=== PATIENT | female | born 1965 | race Caucasian/White ===

== ENCOUNTER 2018-03-04 10:27 | Outpatient (CLI) | payer BC | END 2018-03-04 10:28 | disposition home or self-care (01) | LOC: BICMAMMO 10:27 | PROVIDERS: ATTEND Obstetrics & Gynecology | DX: Z12.31 Encounter for screening mammogram for malignant neoplasm of breast (principal) | CPT/HCPCS: 77063; 77067 ==

== ENCOUNTER 2021-03-21 13:32 | Outpatient (CLI) | payer BC | END 2021-03-21 13:33 | disposition home or self-care (01) | LOC: ULT 13:32 | PROVIDERS: ATTEND Family Medicine | DX: I42.9 Cardiomyopathy, unspecified (principal); I07.1 Rheumatic tricuspid insufficiency | CPT/HCPCS: 93306 ==

== ENCOUNTER 2021-05-03 01:39 | Emergency (ER) | payer BC ==
[2021-05-03 02:39] LABS: #Eosinphils 0.1 thou/uL (0.0-0.7); #Lymphocytes 2.1 thou/uL (1.20-3.40); #Monocytes 0.4 thou/uL (0.11-0.59); #Neutrophils 8.4 thou/uL (1.40-6.50); %Basophils 0.3 % (0.0-1.0); %Eosinophils 0.8 % (0.0-10.0); %Lymphocytes 19.1 % (21.0-51.0); %Monocytes 3.8 % (0.0-10.0); Hemoglobin 14.5 g/dL (12.0-16.0); Mean Corpuscular HGB CONC 32.5 g/dL (32.0-36.0); Mean Corpuscular Hemoglobin 30.4 pg (27.0-31.0); Mean Corpuscular Volume 93.7 fL (78.0-98.0); Mean Platelet Volume 7.6 fL (7.4-10.4); Platelet Count 239 thou/uL (130-400); RBC Distribution Width 12.3 % (11.5-14.5); Red Blood Cell (RBC) Count 4.77 mill/uL (4.20-5.40)
[2021-05-03 02:47] LABS: Bacteria/HPF None Seen HPF (None Seen); Bilirubin Negative (Negative); Blood, Urine Negative (Negative); Clarity Turbid (Clear); Glucose, Urine (Dipstick) Normal (Negative); Ketone, Urine Negative (Negative); Leukocyte 25 Leu/uL (Negative); Nitrite Negative (Negative); Protein, Urine (Dipstick) 30 mg/dL (Neg-Trace); RBC/HPF 0-3 HPF (0-3); Specific Gravity, Urine 1.016 (1.002-1.036); Squamous Epithelial 0-3 HPF (0-3); WBC/HPF 0-3 HPF (0-3); pH, Urine 5.5 (5.0-9.0)
[2021-05-03 02:58] LABS: ALT (SGPT) 8 U/L (8-55); AST (SGOT) 15 U/L (5-34); Albumin 3.5 g/dL (3.5-5.0); Alkaline Phosphatase 61 U/L (40-110); Anion Gap 12 mmol/L (10-20); BUN (Urea Nitrogen) 16 mg/dL (9.8-20.1); Bilirubin, Total 0.3 mg/dL (0.2-1.2); Calc. Creatinine Clearance 0 mL/min (70-130); Calcium 8.7 mg/dL (7.8-10.44); Carbon Dioxide 28 mmol/L (22-29); Chloride 103 mmol/L (98-107); Globulin 2.7 g/dL (2.4-3.5); Glucose 167 mg/dL (70-105); Lipase 25 U/L (8-78); Potassium 4.8 mmol/L (3.5-5.1); Protein, Total 6.2 g/dL (6.0-8.3); Sodium 138 mmol/L (136-145)
[2021-05-03] MEDS ORDERED: Iopamidol-370 76% 500 ML 1 ML ONE (10:11)
== END 2021-05-03 04:45 | disposition home or self-care (01) ==
LOC: ERS 01:39
DX: R11.2 Nausea with vomiting, unspecified (principal); R19.7 Diarrhea, unspecified; G47.30 Sleep apnea, unspecified; I42.9 Cardiomyopathy, unspecified; I11.0 Hypertensive heart disease with heart failure; I50.9 Heart failure, unspecified; E78.5 Hyperlipidemia, unspecified; E78.00 Pure hypercholesterolemia, unspecified; E66.9 Obesity, unspecified
CPT/HCPCS: 36415; 51701; 74177; 80053; 81003; 81015; 83605; 83690; 84484; 85025; 87324; 87449; 93005; Q9967

== ENCOUNTER 2022-11-10 12:19 | Inpatient (IN) | payer BC ==
[~2022-11-10 12:19] MED LIST: Iopamidol-370 76% 500 ML 1 ML ONE
[2022-11-10 13:04] LABS: #Lymphocytes 1.1 thou/uL (1.20-3.40); #Monocytes 0.5 thou/uL (0.11-0.59); #Neutrophils 11.3 thou/uL (1.40-6.50); %Eosinophils 0.1 % (0.0-10.0); %Lymphocytes 8.8 % (21.0-51.0); %Monocytes 3.7 % (0.0-10.0); %Neutrophils 87.4 % (42.0-75.0); Hemoglobin 14.2 g/dL (12.0-16.0); Mean Corpuscular HGB CONC 31.5 g/dL (32.0-36.0); Mean Corpuscular Hemoglobin 28.7 pg (27.0-31.0); Mean Corpuscular Volume 91.3 fl (78.0-98.0); Platelet Count 261 10x3/uL (130-400); RBC Distribution Width 12.2 % (11.5-14.5); Red Blood Cell (RBC) Count 4.95 mill/uL (4.20-5.40); White Blood Cell (WBC) Count 12.9 10x3/uL (4.8-10.8)
[2022-11-10 13:26] LABS: ALT (SGPT) 14 U/L (8-55); AST (SGOT) 16 U/L (5-34); Albumin 4.2 g/dL (3.5-5.0); Alkaline Phosphatase 82 U/L (40-110); Anion Gap 17 mmol/L (10-20); BUN (Urea Nitrogen) 15 mg/dL (9.8-20.1); Bilirubin, Total 0.8 mg/dL (0.2-1.2); Calc. Creatinine Clearance 0 mL/min (70-130); Calcium 9.8 mg/dL (7.8-10.44); Carbon Dioxide 25 mmol/L (22-29); Chloride 100 mmol/L (98-107); Estimated GFR 85; Globulin 3.9 g/dL (2.4-3.5); Glucose 173 mg/dL (70-105); Lipase 10 U/L (8-78); Potassium 3.7 mmol/L (3.5-5.1); Protein, Total 8.1 g/dL (6.0-8.3); Sodium 138 mmol/L (136-145)
[2022-11-10] MEDS ORDERED: Ondansetron PF 4 MG/2 ML Vial ONE (14:53)
[2022-11-10] MEDS ORDERED: Metoclopramide HCl 10 MG/2 ML VIAL ONE (15:35)
[2022-11-10 16:54] LABS: Bilirubin Negative (Negative); Blood, Urine Trace (Negative); Clarity Clear (Clear); Glucose, Urine (Dipstick) Normal (Negative); Ketone, Urine 40 mg/dL (Negative); Leukocyte 25 Leu/uL (Negative); Nitrite Negative (Negative); Protein, Urine (Dipstick) 20 mg/dL (Neg-Trace); Squamous Epithelial 21-50 HPF (0-3)
[2022-11-10 16:57] LABS: Bacteria/HPF 1+ HPF (None Seen); Specific Gravity, Urine Greater than 1.060 (1.002-1.036)
[2022-11-10 19:15] LABS: SARS-CoV-2 NAA Rapid Test Not Detected (NotDetected)
[2022-11-10] MEDS ORDERED: Senokot S 8.6-50 MG TAB PO PRN (21:29)
[2022-11-11 02:42] VITALS: BMI 35.7
[2022-11-11 05:47] LABS: Anion Gap 12 mmol/L (10-20); BUN (Urea Nitrogen) 12 mg/dL (9.8-20.1); Calc. Creatinine Clearance 137 mL/min (70-130); Calcium 8.8 mg/dL (7.8-10.44); Carbon Dioxide 28 mmol/L (22-29); Cardiac Risk 3.7 (Less than 4.5); Chloride 104 mmol/L (98-107); Cholesterol 175 mg/dl (< 200 Desired); Estimated GFR 100; Glucose 121 mg/dL (70-105); HDL Cholesterol 47 mg/dL (>60 Neg Risk); LDL Cholesterol, Calculated 115 mg/dL; Potassium 3.3 mmol/L (3.5-5.1); Sodium 141 mmol/L (136-145); Triglycerides 66 mg/dL (Less than 150)
[2022-11-11] MEDS: Ondansetron ODT 4 MG TAB PO PRN ×2 (08:33→15:00)
[2022-11-11] MEDS ORDERED: Lisinopril/Hydrochlorothiazide 20 mg/12.5 mg Tablet PO SCH (09:00)
[2022-11-11] MEDS: Carvedilol 6.25 MG TAB PO SCH ×2 (10:26→17:49)
[2022-11-11] MEDS: Famotidine 20 MG TAB PO SCH ×2 (10:26→21:50)
[2022-11-11] MEDS: Aspirin 81 mg Enteric Coated Tablet PO SCH (10:26)
[2022-11-11] MEDS: NS 0.9% w/ 20 MEQ KCL 1,000 ML/1,000 ML BAG IV SCH (17:30)
[2022-11-11] MEDS: Acetaminophen 325 MG TAB PO PRN (17:31)
[2022-11-11] MEDS: Metoclopramide HCl 10 MG/2 ML VIAL IVP PRN (17:39)
[2022-11-11] MEDS: Atorvastatin Calcium 40 MG TAB PO SCH (21:50)
[2022-11-12] MEDS ORDERED: Electrolyte Replacement Protocol 1 EACH FS SCH (08:00)
[2022-11-12] MEDS ORDERED: Potassium Chloride 20 MEQ TAB PO SCH (08:00)
[2022-11-12] MEDS ORDERED: Lisinopril 10 MG TAB PO SCH (09:00)
[2022-11-12] MEDS: Ondansetron PF 4 MG/2 ML Vial IVP PRN (09:50)
[2022-11-12] MEDS: NS 0.9% w/ 20 MEQ KCL 1,000 ML/1,000 ML BAG IV SCH (09:50)
[2022-11-12] MEDS: Famotidine 20 MG TAB PO SCH ×2 (09:51→20:54)
[2022-11-12] MEDS: Aspirin 81 mg Enteric Coated Tablet PO SCH (09:51)
[2022-11-12] MEDS: Carvedilol 6.25 MG TAB PO SCH ×2 (09:51→17:23)
[2022-11-12] MEDS ORDERED: Lidocaine 1% w/Epinephrine 1:100K 20 ML VIAL ONE (10:17)
[2022-11-12] MEDS: Metoclopramide HCl 10 MG/2 ML VIAL IVP PRN (15:35)
[2022-11-12] MEDS: Atorvastatin Calcium 40 MG TAB PO SCH (20:54)
[2022-11-13 05:33] LABS: #Eosinphils 0.1 thou/uL (0.0-0.7); #Lymphocytes 1.9 thou/uL (1.20-3.40); #Monocytes 0.8 thou/uL (0.11-0.59); %Basophils 0.4 % (0.0-1.0); %Lymphocytes 21.2 % (21.0-51.0); %Monocytes 8.9 % (0.0-10.0); %Neutrophils 68.6 % (42.0-75.0); Hemoglobin 13.1 g/dL (12.0-16.0); Mean Corpuscular HGB CONC 32.4 g/dL (32.0-36.0); Mean Corpuscular Hemoglobin 30.1 pg (27.0-31.0); Mean Corpuscular Volume 92.8 fl (78.0-98.0); Platelet Count 199 10x3/uL (130-400); Red Blood Cell (RBC) Count 4.37 mill/uL (4.20-5.40); White Blood Cell (WBC) Count 8.8 10x3/uL (4.8-10.8)
[2022-11-13 05:57] LABS: Anion Gap 12 mmol/L (10-20); BUN (Urea Nitrogen) 9 mg/dL (9.8-20.1); Calc. Creatinine Clearance 135 mL/min (70-130); Carbon Dioxide 32 mmol/L (22-29); Chloride 100 mmol/L (98-107); Estimated GFR 100; Glucose 102 mg/dL (70-105); Potassium 3.7 mmol/L (3.5-5.1); Sodium 140 mmol/L (136-145)
[2022-11-13] MEDS ORDERED: PROPOFOL 20 ML ONE (07:17)
[2022-11-13] MEDS ORDERED: PROPOFOL 200 MG/20 ML VIAL ONE (07:30)
[2022-11-13] MEDS ORDERED: Lisinopril 10 MG TAB PO SCH (07:45)
[2022-11-13] MEDS ORDERED: Lisinopril 20 MG TAB PO SCH (09:00)
[2022-11-13] MEDS: Aspirin 81 mg Enteric Coated Tablet PO SCH (09:27)
[2022-11-13] MEDS: Carvedilol 6.25 MG TAB PO SCH ×2 (09:27→16:41)
[2022-11-13] MEDS: Famotidine 20 MG TAB PO SCH ×2 (09:27→21:30)
[2022-11-13] MEDS: Acetaminophen 325 MG TAB PO PRN (09:29)
[2022-11-13] MEDS: Ondansetron PF 4 MG/2 ML Vial IVP PRN (09:29)
[2022-11-13] MEDS ORDERED: Moisturizing Cream (Eucerin) 113 GM JAR TOP PRN (11:35)
[2022-11-13] MEDS ORDERED: Sodium Chloride 0.65% Nasal 44 ML BOT EA NARE PRN (11:35)
[2022-11-13] MEDS ORDERED: Acetaminophen 500 MG TAB PO PRN (11:35)
[2022-11-13] MEDS ORDERED: Artificial Tear Sol 15 ML BOT EA EYE PRN (11:35)
[2022-11-13] MEDS ORDERED: NIFEdipine XL 30 MG TAB PO SCH (12:00)
[2022-11-13] MEDS: Metoclopramide HCl 10 MG/2 ML VIAL IVP PRN (13:48)
[2022-11-13] MEDS: Acetaminophen 500 MG TAB PO PRN (13:49)
[2022-11-13] MEDS ORDERED: Prochlorperazine Maleate 5 MG TAB PO PRN (15:44)
[2022-11-13] MEDS: Scopolamine 1.5 mg/72 hour Patch TD SCH (16:42)
[2022-11-13] MEDS: Promethazine 25 MG TAB PO SCH (16:42)
[2022-11-13] MEDS: Atorvastatin Calcium 40 MG TAB PO SCH (21:30)
[2022-11-14] MEDS: Ondansetron ODT 4 MG TAB PO SCH ×3 (01:12→22:16)
[2022-11-14] MEDS: Promethazine 25 MG TAB PO SCH ×2 (05:45→17:44)
[2022-11-14 06:20] LABS: Magnesium 1.9 mg/dL (1.6-2.6)
[2022-11-14] MEDS ORDERED: Magnesium 2 GM/50 ML(in water) 2 GM in Premix Bag 1 BAG IVPB SCH (08:00)
[2022-11-14] MEDS ORDERED: FLU VACC QS2022-23(6MOS UP)/PF 60 MCG/0.5 ML SYRINGE IM ONE (09:00)
[2022-11-14] MEDS ORDERED: NIFEdipine XL 30 MG TAB PO SCH (09:00)
[2022-11-14] MEDS: Carvedilol 6.25 MG TAB PO SCH ×2 (09:12→17:40)
[2022-11-14] MEDS: Famotidine 20 MG TAB PO SCH ×2 (09:15→22:18)
[2022-11-14] MEDS: Aspirin 81 mg Enteric Coated Tablet PO SCH (09:15)
[2022-11-14] MEDS: Lisinopril 20 MG TAB PO SCH ×2 (09:16→22:17)
[2022-11-14] MEDS: NIFEdipine XL 60 MG TAB PO SCH (09:16)
[2022-11-14] MEDS: Acetaminophen 325 MG TAB PO PRN (09:16)
[2022-11-14] MEDS: Loratadine 10 MG TAB PO SCH (09:16)
[2022-11-14] MEDS: Acetaminophen 500 MG TAB PO PRN (17:48)
[2022-11-14] MEDS: Atorvastatin Calcium 40 MG TAB PO SCH (22:17)
[2022-11-15] MEDS: Acetaminophen 500 MG TAB PO PRN ×2 (02:17→10:44)
[2022-11-15] MEDS: Promethazine 25 MG TAB PO SCH ×2 (06:11→17:57)
[2022-11-15] MEDS: Aspirin 81 mg Enteric Coated Tablet PO SCH (10:43)
[2022-11-15] MEDS: NIFEdipine XL 60 MG TAB PO SCH (10:43)
[2022-11-15] MEDS: Lisinopril 20 MG TAB PO SCH ×2 (10:43→21:49)
[2022-11-15] MEDS: Famotidine 20 MG TAB PO SCH ×2 (10:43→21:49)
[2022-11-15] MEDS: Loratadine 10 MG TAB PO SCH (10:43)
[2022-11-15] MEDS: Carvedilol 6.25 MG TAB PO SCH ×2 (10:44→17:57)
[2022-11-15] MEDS: Ondansetron ODT 4 MG TAB PO SCH ×2 (11:49→21:48)
[2022-11-15] MEDS ORDERED: Meclizine HCl 12.5 MG TAB PO PRN (17:23)
[2022-11-15] MEDS: Dextrose 5 %-0.45 % NaCl 1,000 ML IV SCH (18:00)
[2022-11-15] MEDS: Atorvastatin Calcium 40 MG TAB PO SCH (21:48)
[2022-11-16] MEDS: Promethazine 25 MG TAB PO SCH ×2 (04:53→18:00)
[2022-11-16 05:44] LABS: #Eosinphils 0.2 thou/uL (0.0-0.7); #Lymphocytes 1.5 thou/uL (1.20-3.40); #Monocytes 0.8 thou/uL (0.11-0.59); #Neutrophils 7.4 thou/uL (1.40-6.50); %Basophils 0.2 % (0.0-1.0); %Lymphocytes 14.9 % (21.0-51.0); %Monocytes 7.7 % (0.0-10.0); %Neutrophils 75.2 % (42.0-75.0); Hemoglobin 14.4 g/dL (12.0-16.0); Mean Corpuscular HGB CONC 32.8 g/dL (32.0-36.0); Mean Corpuscular Hemoglobin 30.6 pg (27.0-31.0); Mean Corpuscular Volume 93.3 fl (78.0-98.0); Mean Platelet Volume 8.4 fL (7.4-10.4); Platelet Count 227 10x3/uL (130-400); RBC Distribution Width 12.5 % (11.5-14.5); Red Blood Cell (RBC) Count 4.72 mill/uL (4.20-5.40); White Blood Cell (WBC) Count 9.9 10x3/uL (4.8-10.8)
[2022-11-16 06:07] LABS: Anion Gap 13 mmol/L (10-20); BUN (Urea Nitrogen) 11 mg/dL (9.8-20.1); Calc. Creatinine Clearance 129 mL/min (70-130); Calcium 8.9 mg/dL (7.8-10.44); Carbon Dioxide 28 mmol/L (22-29); Chloride 99 mmol/L (98-107); Estimated GFR 96; Glucose 126 mg/dL (70-105); Magnesium 1.9 mg/dL (1.6-2.6); Potassium 3.6 mmol/L (3.5-5.1); Sodium 136 mmol/L (136-145)
[2022-11-16] MEDS ORDERED: Magnesium 2 GM/50 ML(in water) 2 GM in Premix Bag 1 BAG IVPB SCH (09:00)
[2022-11-16] MEDS: Aspirin 81 mg Enteric Coated Tablet PO SCH (09:25)
[2022-11-16] MEDS: Famotidine 20 MG TAB PO SCH ×2 (09:26→21:09)
[2022-11-16] MEDS: NIFEdipine XL 60 MG TAB PO SCH (09:27)
[2022-11-16] MEDS: Loratadine 10 MG TAB PO SCH (09:28)
[2022-11-16] MEDS: Meclizine HCl 12.5 MG TAB PO SCH (09:28)
[2022-11-16] MEDS: Lisinopril 20 MG TAB PO SCH ×2 (09:28→21:09)
[2022-11-16] MEDS: Carvedilol 6.25 MG TAB PO SCH ×2 (09:28→16:17)
[2022-11-16] MEDS: Ondansetron ODT 4 MG TAB PO SCH (12:41)
[2022-11-16] MEDS ORDERED: Ondansetron ODT 4 MG TAB PO PRN (15:50)
[2022-11-16] MEDS ORDERED: Potassium Chloride 40 MEQ in Premix Bag 1 BAG IVPB SCH (16:00)
[2022-11-16] MEDS ORDERED: Magnesium Oxide 250 MG TAB PO SCH (16:00)
[2022-11-16] MEDS: Dextrose 5 %-0.45 % NaCl 1,000 ML IV SCH (16:13)
[2022-11-16] MEDS: Scopolamine 1.5 mg/72 hour Patch TD SCH (16:13)
[2022-11-16] MEDS: Potassium Chloride 20 MEQ in Premix Bag 1 BAG IVPB SCH ×2 (16:54→21:11)
[2022-11-16] MEDS: Atorvastatin Calcium 40 MG TAB PO SCH (21:09)
[2022-11-17 05:24] LABS: Magnesium 2.1 mg/dL (1.6-2.6)
[2022-11-17] MEDS: Promethazine 25 MG TAB PO SCH (05:29)
[2022-11-17 05:36] LABS: Anion Gap 14 mmol/L (10-20); BUN (Urea Nitrogen) 11 mg/dL (9.8-20.1); Calc. Creatinine Clearance 137 mL/min (70-130); Calcium 9.2 mg/dL (7.8-10.44); Carbon Dioxide 28 mmol/L (22-29); Chloride 101 mmol/L (98-107); Estimated GFR 100; Glucose 89 mg/dL (70-105); Phosphorus 3.5 mg/dL (2.3-4.7); Sodium 139 mmol/L (136-145)
[2022-11-17] MEDS ORDERED: NIFEdipine XL 60 MG TAB PO SCH (07:25)
[2022-11-17] MEDS ORDERED: Milk Of Magnesia 30 ML UDCUP PO SCH (08:45)
[2022-11-17] MEDS ORDERED: Senokot 8.6 MG TAB PO SCH (08:45)
[2022-11-17] MEDS: Lisinopril 20 MG TAB PO SCH ×2 (09:32→20:28)
[2022-11-17] MEDS: Famotidine 20 MG TAB PO SCH ×2 (09:33→20:28)
[2022-11-17] MEDS: Carvedilol 6.25 MG TAB PO SCH ×2 (09:33→17:36)
[2022-11-17] MEDS: Meclizine HCl 12.5 MG TAB PO SCH (09:34)
[2022-11-17] MEDS: Acetaminophen 500 MG TAB PO PRN (09:34)
[2022-11-17] MEDS: NIFEdipine XL 90 MG TAB PO SCH (09:34)
[2022-11-17] MEDS: Loratadine 10 MG TAB PO SCH (09:34)
[2022-11-17] MEDS: Aspirin 81 mg Enteric Coated Tablet PO SCH (09:34)
[2022-11-17] MEDS: Metoclopramide HCl 10 MG TAB PO SCH ×2 (17:36→20:28)
[2022-11-17] MEDS: Atorvastatin Calcium 40 MG TAB PO SCH (20:28)
[2022-11-18 06:12] LABS: Anion Gap 13 mmol/L (10-20); BUN (Urea Nitrogen) 12 mg/dL (9.8-20.1); Calc. Creatinine Clearance 128 mL/min (70-130); Calcium 9.1 mg/dL (7.8-10.44); Carbon Dioxide 30 mmol/L (22-29); Chloride 99 mmol/L (98-107); Estimated GFR 95; Glucose 92 mg/dL (70-105); Potassium 3.8 mmol/L (3.5-5.1); Sodium 138 mmol/L (136-145)
[2022-11-18] MEDS: Carvedilol 6.25 MG TAB PO SCH ×2 (08:29→16:35)
[2022-11-18] MEDS: Famotidine 20 MG TAB PO SCH ×2 (08:30→21:05)
[2022-11-18] MEDS: NIFEdipine XL 90 MG TAB PO SCH (08:30)
[2022-11-18] MEDS: Aspirin 81 mg Enteric Coated Tablet PO SCH (08:30)
[2022-11-18] MEDS: Metoclopramide HCl 10 MG TAB PO SCH ×4 (08:30→21:05)
[2022-11-18] MEDS: Lisinopril 20 MG TAB PO SCH ×2 (08:30→21:05)
[2022-11-18] MEDS: Meclizine HCl 12.5 MG TAB PO SCH (08:30)
[2022-11-18] MEDS: Loratadine 10 MG TAB PO SCH (08:30)
[2022-11-18] MEDS: Ondansetron ODT 4 MG TAB PO PRN ×2 (13:45→20:09)
[2022-11-18] MEDS: Atorvastatin Calcium 40 MG TAB PO SCH (21:05)
[2022-11-19 06:15] LABS: Anion Gap 15 mmol/L (10-20); BUN (Urea Nitrogen) 14 mg/dL (9.8-20.1); Calc. Creatinine Clearance 128 mL/min (70-130); Calcium 9.2 mg/dL (7.8-10.44); Carbon Dioxide 28 mmol/L (22-29); Chloride 99 mmol/L (98-107); Estimated GFR 95; Glucose 89 mg/dL (70-105); Potassium 3.7 mmol/L (3.5-5.1); Sodium 138 mmol/L (136-145)
[2022-11-19] MEDS: Famotidine 20 MG TAB PO SCH (08:22)
[2022-11-19] MEDS: Aspirin 81 mg Enteric Coated Tablet PO SCH (08:22)
[2022-11-19] MEDS: Loratadine 10 MG TAB PO SCH (08:22)
[2022-11-19] MEDS: Carvedilol 6.25 MG TAB PO SCH ×2 (08:22→16:13)
[2022-11-19] MEDS: Lisinopril 20 MG TAB PO SCH (08:22)
[2022-11-19] MEDS: NIFEdipine XL 90 MG TAB PO SCH (08:22)
[2022-11-19] MEDS: Meclizine HCl 12.5 MG TAB PO SCH (08:23)
[2022-11-19] MEDS: Metoclopramide HCl 10 MG TAB PO SCH ×3 (08:23→16:14)
[2022-11-19] MEDS: Acetaminophen 500 MG TAB PO PRN (09:19)
[2022-11-19 16:03] VITALS: BP 153/81; TEMP 97.9
[2022-11-19] MEDS: Scopolamine 1.5 mg/72 hour Patch TD SCH (16:13)
== END 2022-11-19 17:45 | DRG 41 ==
LOC: ERS 12:19 → NEURO 21:29
PROVIDERS: ADMIT Student in an Organized Health Care Education/Training Program; ATTEND Family Medicine
PROC: 0JH602Z Insertion of Monitoring Device into Chest Subcutaneous Tissue and Fascia, Open Approach (ICD-10-PCS; 2022-11-12)
PROC: B24BZZ4 Ultrasonography of Heart with Aorta, Transesophageal (ICD-10-PCS; principal; 2022-11-13)
DX: I63.532 Cerebral infarction due to unspecified occlusion or stenosis of left posterior cerebral artery (principal); I47.20 Ventricular tachycardia, unspecified; Z51.5 Encounter for palliative care; E78.5 Hyperlipidemia, unspecified; I11.0 Hypertensive heart disease with heart failure; I50.9 Heart failure, unspecified; E87.6 Hypokalemia; F41.9 Anxiety disorder, unspecified; R11.2 Nausea with vomiting, unspecified; G47.30 Sleep apnea, unspecified; E78.00 Pure hypercholesterolemia, unspecified; F32.A Depression, unspecified; R29.700 NIHSS score 0; R26.0 Ataxic gait; E66.9 Obesity, unspecified; Z68.35 Body mass index [BMI] 35.0-35.9, adult; Z79.899 Other long term (current) drug therapy; Z98.890 Other specified postprocedural states; Z82.49 Family history of ischemic heart disease and other diseases of the circulatory system; I08.1 Rheumatic disorders of both mitral and tricuspid valves; I63.531 Cerebral infarction due to unspecified occlusion or stenosis of right posterior cerebral artery; R47.1 Dysarthria and anarthria
CPT/HCPCS: 33285; 36415; 70450; 70551; 71045; 74177; 80048; 80053; 80061; 81003; 81015; 83036; 83690; 83735; 84100; 84443; 84484; 85025; 87811; 93005; 93306; 93312; 93880; 96361; 96365; 96375; C1764; J1650; J2405; J2704; J2765; J3475; J3480; J7042; Q0162; Q0164; Q0169; Q9967; U0002

== ENCOUNTER 2022-12-19 03:08 | Emergency (ER) | payer BC ==
[2022-12-19] MEDS ORDERED: Mag-Al 1200 mg/1200 mg/30 ML UDCUP ONE (03:22)
[2022-12-19] MEDS ORDERED: Lidocaine Viscous Sol 2% 15 ml UD Cup ONE (03:22)
== END 2022-12-19 04:27 | disposition home or self-care (01) ==
LOC: ERS 03:08
DX: K21.9 Gastro-esophageal reflux disease without esophagitis (principal); E78.00 Pure hypercholesterolemia, unspecified; E66.9 Obesity, unspecified; I11.0 Hypertensive heart disease with heart failure; I50.9 Heart failure, unspecified; Z79.899 Other long term (current) drug therapy
CPT/HCPCS: 93005

== ENCOUNTER 2023-05-13 08:12 | Emergency (ER) | payer BC ==
[2023-05-13] MEDS ORDERED: Ondansetron PF 4 MG/2 ML Vial ONE (08:43)
[2023-05-13 09:12] LABS: #Eosinphils 0.3 thou/uL (0.0-0.7); #Monocytes 0.7 thou/uL (0.11-0.59); #Neutrophils 4.6 thou/uL (1.40-6.50); %Basophils 0.6 % (0.0-1.0); %Eosinophils 4.8 % (0.0-10.0); %Lymphocytes 17.9 % (21.0-51.0); %Monocytes 9.7 % (0.0-10.0); %Neutrophils 66.7 % (42.0-75.0); Hematocrit 37.3 % (36.0-47.0); Hemoglobin 11.6 g/dL (12.0-16.0); Mean Corpuscular HGB CONC 31.1 g/dL (32.0-36.0); Mean Corpuscular Hemoglobin 29.4 pg (27.0-31.0); Mean Corpuscular Volume 94.4 fl (78.0-98.0); Mean Platelet Volume 10.1 fL (7.4-10.4); Platelet Count 177 10x3/uL (130-400); RBC Distribution Width 13.2 % (11.5-14.5); Red Blood Cell (RBC) Count 3.95 mill/uL (4.20-5.40); White Blood Cell (WBC) Count 6.9 10x3/uL (4.8-10.8)
[2023-05-13 09:32] LABS: ALT (SGPT) 13 U/L (8-55); AST (SGOT) 17 U/L (5-34); Albumin 3.3 g/dL (3.5-5.0); Alkaline Phosphatase 73 U/L (40-110); Anion Gap 9 mmol/L (10-20); BUN (Urea Nitrogen) 19 mg/dL (9.8-20.1); Bilirubin, Total 0.4 mg/dL (0.2-1.2); Calc. Creatinine Clearance 0 mL/min (70-130); Calcium 8.1 mg/dL (7.8-10.44); Carbon Dioxide 23 mmol/L (22-29); Chloride 109 mmol/L (98-107); Estimated GFR 81; Globulin 2.7 g/dL (2.4-3.5); Glucose 201 mg/dL (70-105); Sodium 137 mmol/L (136-145)
[2023-05-13 09:34] LABS: Bacteria/HPF Rare-Few HPF (None Seen); Bilirubin Negative (Negative); Blood, Urine Negative (Negative); CAUTI Indications for Culture Alt mental st,lethar; Clarity Clear (Clear); Glucose, Urine (Dipstick) Normal (Negative); Ketone, Urine Negative (Negative); Leukocyte 25 Leu/uL (Negative); Nitrite Negative (Negative); Protein, Urine (Dipstick) 20 mg/dL (Neg-Trace); RBC/HPF 0-3 HPF (0-3); Specific Gravity, Urine 1.027 (1.002-1.036); Urobilinogen Normal mg/dL (Less than 2); WBC/HPF 0-3 HPF (0-3); pH, Urine 5.5 (5.0-9.0)
[2023-05-13 09:36] LABS: Urine Culture Reflex No No
== END 2023-05-13 10:20 | disposition home or self-care (01) ==
LOC: ERS 08:12
DX: R42 Dizziness and giddiness (principal); E78.00 Pure hypercholesterolemia, unspecified; E66.9 Obesity, unspecified; I11.0 Hypertensive heart disease with heart failure; I50.9 Heart failure, unspecified; Z79.899 Other long term (current) drug therapy
CPT/HCPCS: 36415; 70450; 71045; 80053; 81001; 84484; 85025; 93005; 96361; 96374; J2405

== ENCOUNTER 2023-10-27 16:00 | Outpatient (CLI) | payer BC | END 2023-10-27 16:01 | disposition home or self-care (01) | LOC: SLEEPLAB 16:00 | PROVIDERS: ATTEND Family Medicine | DX: G47.33 Obstructive sleep apnea (adult) (pediatric) (principal); E66.9 Obesity, unspecified; R06.83 Snoring; R53.83 Other fatigue | CPT/HCPCS: 95800 ==

== ENCOUNTER 2025-09-29 18:49 | Inpatient (IN) | payer BC ==
[2025-09-29 20:18] LABS: #Basophils Less than 0.03 10x3/uL (0.0-0.2); #Eosinophils Less than 0.03 10x3/uL (0.0-0.7); #Monocytes 0.48 10x3/uL (0.11-0.59); #Neutrophils 5.25 10x3/uL (1.40-6.50); %Basophils 0.3 % (0.0-1.0); %Eosinophils 0.3 % (0.0-10.0); %Lymphocytes 5.2 % (21.0-51.0); %Monocytes 7.9 % (0.0-10.0); %Neutrophils 86.1 % (42.0-75.0); Hematocrit 36.1 % (36.0-47.0); Hemoglobin 11.4 g/dL (12.0-16.0); Mean Corpuscular Hemoglobin 28.4 pg (27.0-31.0); Mean Corpuscular Volume 90.0 fL (78.0-98.0); Platelet Count 191 10x3/uL (130-400); Red Blood Cell (RBC) Count 4.01 mill/uL (4.20-5.40); White Blood Cell (WBC) Count 6.10 10x3/uL (4.8-10.8)
[2025-09-29 20:32] LABS: ALT (SGPT) 14 U/L (Less than 34); AST (SGOT) 29 U/L (11-34); Albumin 3.2 g/dL (3.1-4.5); Alkaline Phosphatase 75 U/L (40-110); Anion Gap 16 mmol/L (10-20); BUN (Urea Nitrogen) 15 mg/dL (9.8-20.1); Bilirubin, Total 0.5 mg/dL (0.3-1.2); CK (CPK) 69 U/L (29-168); Calc. Creatinine Clearance 0 mL/min (70-130); Calcium 8.2 mg/dL (7.8-10.44); Carbon Dioxide 24 mmol/L (23-31); Chloride 103 mmol/L (98-107); Globulin 3.5 g/dL (2.4-3.5); Glucose 164 mg/dL (80-115); Lipase 19 U/L (8-78); Potassium 3.8 mmol/L (3.5-5.1); Sodium 139 mmol/L (136-145)
[2025-09-29] MEDS ORDERED: Oseltamivir 75 MG CAP ONE (21:48)
[2025-09-29] MEDS ORDERED: Furosemide 40 MG (4 mL) VIAL ONE (21:48)
[2025-09-29 21:49] LABS: Bacteria/HPF None Seen HPF (None Seen); CAUTI Indications for Culture Alt mental st,lethar; Glucose, Urine (Dipstick) Normal (Negative); Leukocyte 500 Leu/uL (Negative); Protein, Urine (Dipstick) 10 mg/dL (Neg-Trace); RBC/HPF None Seen HPF (0-3); Specific Gravity, Urine 1.023 (1.002-1.036); WBC/HPF 0-3 HPF (0-3)
[2025-09-29 21:53] LABS: Urine Culture Reflex No No
[2025-09-29] MEDS ORDERED: Acetaminophen 325 MG TAB PO PRN (23:00)
[2025-09-29] MEDS ORDERED: Ondansetron PF 4 MG/2 ML Vial IVP PRN (23:00)
[2025-09-30 01:19] VITALS: BMI 41.8
[2025-09-30 01:48] LABS: Actual Bicarbonate (HCO3v) 26.9 mEq/L (22-28); Base Excess 0.5 mEq/L (-2.0 to +3.0); Calcium, Ionized (venous) 1.00 mmol/L (1.16-1.32); Chloride (VBG) 102 mmol/L (98-106); Hematocrit-VBG 36 % (36.0-47.0); Hemoglobin (Hb) 12.3 g/dL (11.7-16.0); Potassium (VBG) 3.54 mmol/L (3.70-5.30); Sodium 139 mmol/L (133-146)
[2025-09-30 04:13] LABS: #Basophils Less than 0.03 10x3/uL (0.0-0.2); #Eosinophils Less than 0.03 10x3/uL (0.0-0.7); #Monocytes 0.66 10x3/uL (0.11-0.59); #Neutrophils 3.71 10x3/uL (1.40-6.50); %Basophils 0.4 % (0.0-1.0); %Eosinophils 0.0 % (0.0-10.0); %Lymphocytes 13.0 % (21.0-51.0); %Monocytes 13.0 % (0.0-10.0); %Neutrophils 73.4 % (42.0-75.0); Hematocrit 36.5 % (36.0-47.0); Hemoglobin 11.2 g/dL (12.0-16.0); Mean Corpuscular Hemoglobin 28.1 pg (27.0-31.0); Mean Corpuscular Volume 91.7 fL (78.0-98.0); Platelet Count 183 10x3/uL (130-400); Red Blood Cell (RBC) Count 3.98 mill/uL (4.20-5.40); White Blood Cell (WBC) Count 5.06 10x3/uL (4.8-10.8)
[2025-09-30 04:27] LABS: Anion Gap 16 mmol/L (10-20); BUN (Urea Nitrogen) 18 mg/dL (9.8-20.1); Calc. Creatinine Clearance 107 mL/min (70-130); Calcium 7.9 mg/dL (7.8-10.44); Carbon Dioxide 27 mmol/L (23-31); Chloride 104 mmol/L (98-107); Glucose 116 mg/dL (80-115); Potassium 3.6 mmol/L (3.5-5.1); Sodium 143 mmol/L (136-145)
[2025-09-30] MEDS: Furosemide 40 MG (4 mL) VIAL SLOW IVP SCH (06:16)
[2025-09-30] MEDS: Oseltamivir 75 MG CAP PO SCH (09:55)
[2025-09-30] MEDS: Guaifenesin DM 100-10/5 ML UDCUP PO PRN (21:08)
[2025-09-30] MEDS: Enoxaparin 40 MG (0.4 mL) SYRINGE SC SCH (21:08)
[2025-10-01 04:24] LABS: #Basophils Less than 0.03 10x3/uL (0.0-0.2); #Eosinophils Less than 0.03 10x3/uL (0.0-0.7); #Monocytes 0.76 10x3/uL (0.11-0.59); #Neutrophils 4.82 10x3/uL (1.40-6.50); %Basophils 0.2 % (0.0-1.0); %Eosinophils 0.0 % (0.0-10.0); %Lymphocytes 11.9 % (21.0-51.0); %Monocytes 11.9 % (0.0-10.0); %Neutrophils 75.8 % (42.0-75.0); Hematocrit 38.9 % (36.0-47.0); Hemoglobin 11.6 g/dL (12.0-16.0); Mean Corpuscular Hemoglobin 27.5 pg (27.0-31.0); Mean Corpuscular Volume 92.2 fL (78.0-98.0); Platelet Count 179 10x3/uL (130-400); Red Blood Cell (RBC) Count 4.22 mill/uL (4.20-5.40); White Blood Cell (WBC) Count 6.36 10x3/uL (4.8-10.8)
[2025-10-01 04:50] LABS: Anion Gap 13 mmol/L (10-20); BUN (Urea Nitrogen) 23 mg/dL (9.8-20.1); Calc. Creatinine Clearance 113 mL/min (70-130); Calcium 8.1 mg/dL (7.8-10.44); Carbon Dioxide 26 mmol/L (23-31); Chloride 106 mmol/L (98-107); Glucose 154 mg/dL (80-115); Magnesium 1.8 mg/dL (1.6-2.6); Potassium 3.3 mmol/L (3.5-5.1); Sodium 142 mmol/L (136-145)
[2025-10-01] MEDS: FLU (Fluarix Triv) 25-26 (6MOS UP)/PF 45 MCG/0.5 ML Syringe IM ONE (08:31)
[2025-10-01] MEDS: Furosemide 40 MG (4 mL) VIAL SLOW IVP SCH (08:31)
[2025-10-01] MEDS ORDERED: Magnesium Sulfate/D5W 1 GM/100 ML BAG IVPB SCH (13:45)
[2025-10-01] MEDS: Magnesium 2 GM/50 ML(in water) 2 GM in Premix 1 BAG IVPB SCH (16:55)
[2025-10-01] MEDS: Famotidine 20 MG TAB PO SCH (22:47)
[2025-10-01] MEDS: Carvedilol 6.25 MG TAB PO SCH (22:48)
[2025-10-01] MEDS: Melatonin 3 MG TAB PO PRN (22:49)
[2025-10-02 05:00] LABS: #Basophils Less than 0.03 10x3/uL (0.0-0.2); #Eosinophils 0.04 10x3/uL (0.0-0.7); #Monocytes 0.50 10x3/uL (0.11-0.59); #Neutrophils 2.65 10x3/uL (1.40-6.50); %Basophils 0.2 % (0.0-1.0); %Eosinophils 1.0 % (0.0-10.0); %Lymphocytes 23.8 % (21.0-51.0); %Monocytes 11.9 % (0.0-10.0); %Neutrophils 62.9 % (42.0-75.0); Hematocrit 38.9 % (36.0-47.0); Hemoglobin 11.7 g/dL (12.0-16.0); Mean Corpuscular Hemoglobin 27.7 pg (27.0-31.0); Mean Corpuscular Volume 92.2 fL (78.0-98.0); Platelet Count 183 10x3/uL (130-400); Red Blood Cell (RBC) Count 4.22 mill/uL (4.20-5.40); White Blood Cell (WBC) Count 4.21 10x3/uL (4.8-10.8)
[2025-10-02 05:15] LABS: Anion Gap 14 mmol/L (10-20); BUN (Urea Nitrogen) 20 mg/dL (9.8-20.1); Calc. Creatinine Clearance 153 mL/min (70-130); Calcium 8.5 mg/dL (7.8-10.44); Carbon Dioxide 29 mmol/L (23-31); Chloride 104 mmol/L (98-107); Glucose 113 mg/dL (80-115); Magnesium 2.3 mg/dL (1.6-2.6); Potassium 3.7 mmol/L (3.5-5.1); Sodium 143 mmol/L (136-145)
[2025-10-02] MEDS: Ezetimibe 10 MG TAB PO SCH (10:37)
[2025-10-02] MEDS: Lisinopril 10 MG TAB PO SCH (10:37)
[2025-10-02] MEDS: Aspirin 81 mg Enteric Coated Tablet PO SCH (10:37)
[2025-10-02] MEDS: Sertraline 25 MG TAB PO SCH (10:37)
[2025-10-03 04:31] LABS: #Basophils Less than 0.03 10x3/uL (0.0-0.2); #Eosinophils 0.04 10x3/uL (0.0-0.7); #Monocytes 0.48 10x3/uL (0.11-0.59); #Neutrophils 1.93 10x3/uL (1.40-6.50); %Basophils 0.3 % (0.0-1.0); %Eosinophils 1.0 % (0.0-10.0); %Lymphocytes 35.4 % (21.0-51.0); %Monocytes 12.6 % (0.0-10.0); %Neutrophils 50.7 % (42.0-75.0); Hematocrit 38.5 % (36.0-47.0); Hemoglobin 11.5 g/dL (12.0-16.0); Mean Corpuscular Hemoglobin 27.3 pg (27.0-31.0); Mean Corpuscular Volume 91.2 fL (78.0-98.0); Platelet Count 191 10x3/uL (130-400); Red Blood Cell (RBC) Count 4.22 mill/uL (4.20-5.40); White Blood Cell (WBC) Count 3.81 10x3/uL (4.8-10.8)
[2025-10-03 04:51] LABS: Anion Gap 18 mmol/L (10-20); BUN (Urea Nitrogen) 22 mg/dL (9.8-20.1); Calc. Creatinine Clearance 126 mL/min (70-130); Calcium 8.6 mg/dL (7.8-10.44); Carbon Dioxide 29 mmol/L (23-31); Chloride 101 mmol/L (98-107); Glucose 117 mg/dL (80-115); Potassium 3.5 mmol/L (3.5-5.1); Sodium 144 mmol/L (136-145)
[2025-10-03 21:04] LABS: Anion Gap 16 mmol/L (10-20); BUN (Urea Nitrogen) 25 mg/dL (9.8-20.1); Calc. Creatinine Clearance 94 mL/min (70-130); Calcium 8.9 mg/dL (7.8-10.44); Carbon Dioxide 30 mmol/L (23-31); Chloride 102 mmol/L (98-107); Glucose 131 mg/dL (80-115); Magnesium 1.9 mg/dL (1.6-2.6); Potassium 3.5 mmol/L (3.5-5.1); Sodium 144 mmol/L (136-145)
[2025-10-03] MEDS: Magnesium 2 GM/50 ML(in water) 2 GM in Premix 1 BAG IVPB SCH (22:35)
[2025-10-04 04:34] LABS: ALT (SGPT) 16 U/L (Less than 34); AST (SGOT) 36 U/L (11-34); Albumin 3.3 g/dL (3.1-4.5); Alkaline Phosphatase 67 U/L (40-110); Anion Gap 15 mmol/L (10-20); BUN (Urea Nitrogen) 24 mg/dL (9.8-20.1); Bilirubin, Total 0.6 mg/dL (0.3-1.2); Calc. Creatinine Clearance 102 mL/min (70-130); Calcium 8.8 mg/dL (7.8-10.44); Carbon Dioxide 32 mmol/L (23-31); Chloride 101 mmol/L (98-107); Globulin 3.8 g/dL (2.4-3.5); Glucose 156 mg/dL (80-115); Magnesium 2.4 mg/dL (1.6-2.6); Potassium 3.7 mmol/L (3.5-5.1); Sodium 144 mmol/L (136-145)
[2025-10-04 04:45] LABS: #Basophils Less than 0.03 10x3/uL (0.0-0.2); #Eosinophils 0.11 10x3/uL (0.0-0.7); #Monocytes 0.55 10x3/uL (0.11-0.59); #Neutrophils 2.13 10x3/uL (1.40-6.50); %Basophils 0.2 % (0.0-1.0); %Eosinophils 2.5 % (0.0-10.0); %Lymphocytes 35.4 % (21.0-51.0); %Monocytes 12.6 % (0.0-10.0); %Neutrophils 49.1 % (42.0-75.0); Hematocrit 39.5 % (36.0-47.0); Hemoglobin 12.3 g/dL (12.0-16.0); Mean Corpuscular Hemoglobin 27.8 pg (27.0-31.0); Mean Corpuscular Volume 89.4 fL (78.0-98.0); Platelet Count 189 10x3/uL (130-400); Red Blood Cell (RBC) Count 4.42 mill/uL (4.20-5.40); White Blood Cell (WBC) Count 4.35 10x3/uL (4.8-10.8)
[2025-10-04 16:04] VITALS: BP 130/81; TEMP 97.9
== END 2025-10-04 16:21 | disposition home or self-care (01) | DRG 193 ==
LOC: ERS 18:49 → PCU 23:00
PROVIDERS: ADMIT Internal Medicine; ATTEND Internal Medicine
DX: J10.1 Influenza due to other identified influenza virus with other respiratory manifestations (principal); I50.33 Acute on chronic diastolic (congestive) heart failure; J96.00 Acute respiratory failure, unspecified whether with hypoxia or hypercapnia; I47.10 Supraventricular tachycardia, unspecified; I42.9 Cardiomyopathy, unspecified; E66.9 Obesity, unspecified; G47.33 Obstructive sleep apnea (adult) (pediatric); I11.0 Hypertensive heart disease with heart failure; Z86.73 Personal history of transient ischemic attack (TIA), and cerebral infarction without residual deficits; Z98.891 History of uterine scar from previous surgery; Z98.890 Other specified postprocedural states; Z82.49 Family history of ischemic heart disease and other diseases of the circulatory system; E78.5 Hyperlipidemia, unspecified; F41.9 Anxiety disorder, unspecified; F32.A Depression, unspecified; Z79.899 Other long term (current) drug therapy; Z79.82 Long term (current) use of aspirin; Z79.84 Long term (current) use of oral hypoglycemic drugs; Z68.39 Body mass index [BMI] 39.0-39.9, adult
CPT/HCPCS: 36415; 51701; 71045; 80048; 80053; 81001; 82550; 82805; 83605; 83690; 83735; 83880; 84443; 84484; 85025; 87040; 87086; 87324; 87428; 87449; 90656; 93005; 93306; 93798; 96374; J1650; J1940; J3475